=== PATIENT | male | born 1955 | race African-American/Black ===

== ENCOUNTER 2016-07-20 13:46 | Inpatient (IN) | payer OTHER ==
[2016-07-20 15:48] VITALS: BMI 19.8
[2016-07-20] MEDS ORDERED: MENTHOL/PHENOL 1 EACH UD MM PRN (17:57)
[2016-07-20] MEDS ORDERED: guaiFENesin/D-METHORPHAN HB 10 ML UNIT-DOSE CUPS PO PRN (17:57)
[2016-07-20] MEDS ORDERED: MAGNESIUM HYDROX 2400MG/30ML ORAL SUSPENSION 30 ML CUP PO PRN (17:57)
[2016-07-20] MEDS ORDERED: ACETAMINOPHEN 325 MG TABLET (FP) PO PRN (17:57)
[2016-07-20] MEDS ORDERED: LOPERAMIDE HCL 2 MG CAPSULE PO PRN (17:57)
[2016-07-20] MEDS ORDERED: IBUPROFEN 400 MG TABLET (FP) PO PRN (17:57)
[2016-07-20] MEDS ORDERED: MAG HYDROX/AL HYDROX/SIMETH 30 ML UNIT-DOSE CUP PO PRN (17:57)
[2016-07-20] MEDS ORDERED: chlordiazePOXIDE HCL 25 MG CAPSULE PO PRN (17:57)
[2016-07-20] MEDS ORDERED: MAGNESIUM CITRATE 300 ML BOTTLE PO PRN (17:57)
[2016-07-20] MEDS ORDERED: P-EPHED 60MG/TRIPROLIDI 2.5MG TABLET PO PRN (17:57)
[2016-07-20] MEDS ORDERED: ALBUTEROL SO4 6.7 GM HFA INHALER IH PRN (18:10)
--- NOTE | 2016-07-20 18:11 | HP ---
CIWA Score - CIWA Score Nausea/Vomitin-Mild Nausea/No Vomiting Muscle Tremors: 4-Moderate,w/Arms Extend Anxiety: 4-Mod. Anxious/Guarded Agitation: 4-Moderately Restless Paroxysmal Sweats: 1-Minimal Palms Moist Orientation: 1-Uncertain about Date Tacttile Disturbances: 0-None Auditory Disturbances: 0-None Visual Disturbances: 0-None Headache: 0-None Present CIWA-Ar Total Score: 15 Admission ROS S - HPI Chief Complaint: WITHDRAWAL SX Allergies/Adverse Reactions: Allergies Allergy/AdvReac Type Severity Reaction Status Date / Time No Known Allergies Allergy Verified 04/06/14 16:22 History of Present Illness: 61 YEARS OLD MALE WITH LONG HISTORY OF ALCOHOL DEPENDENCE HAS HIV COPD ASTHMA GERD HYPERTENSION WEIGHT LOSS DRY EYES RHINITIS AND DEPRESSION IS ADMITTED TO DETOX Exam Limitations: No Limitations - Ebola screening Have you traveled outside of the country in the last 21 days: No Have you had contact with anyone from an Ebola affected area: No Have you been sick,other than usual withdrawal symptoms: No Do you have a fever: No - Review of Systems Constitutional: Chills, Loss of Appetite, Changes in sleep, Unintentional Wgt. Loss, Unexplained wgt Loss EENT: reports: Dental Problems (DENTURE) Respiratory: reports: SOB with Exertion Cardiac: reports: No Symptoms Reported GI: reports: Nausea, Poor Appetite, Poor Fluid Intake, Indigestion, Abdominal cramping : reports: No Symptoms Reported Musculoskeletal: reports: Back Pain, Muscle Weakness (LEGS) Integumentary: reports: No Symptoms Reported Neuro: reports: Tremors Endocrine: reports: No Symptoms Reported Hematology: reports: No Symptoms Reported Psychiatric: reports: Judgement Intact, Depressed Other Systems: Reviewed and Negative Patient History - Patient Medical History Hx Anemia: No Hx Asthma: Yes Hx Chronic Obstructive Pulmonary Disease (COPD): Yes Hx Cancer: No Hx Cardiac Disorders: No Hx Congestive Heart Failure: No Hx Hypertension: Yes Hx Hypercholesterolemia: No Hx Pacemaker: No HX Cerebrovascular Accident: No Hx Seizures: No Hx Dementia: No Hx Diabetes: No Hx Gastrointestinal Disorders: Yes Hx Liver Disease: No Hx Genitourinary Disorders: Yes (BPH ? Enlarged NO TREATMENT) Hx Sexually Transmitted Disorders: Yes (Gonorrhea, syphilis) Hx Renal Disease (ESRD): No Hx Thyroid Disease: No Hx Human Immunodeficiency Virus (HIV): Yes (1987, aids ,[facility] ) Hx Hepatitis C: Yes (TREATED) Hx Depression: Yes Hx Suicide Attempt: Yes (2001- OD and cutting of vein) Hx Bipolar Disorder: No Hx Schizophrenia: No - Patient Surgical History Past Surgical History: Yes Hx Neurologic Surgery: No Hx Cataract Extraction: No Hx Cardiac Surgery: No Hx Lung Surgery: No Hx Breast Surgery: No Hx Breast Biopsy: No Hx Abdominal Surgery: Yes (rt inguinal hernia 1984) Hx Appendectomy: No Hx Cholecystectomy: No Hx Genitourinary Surgery: No Hx Orthopedic Surgery: No Anesthesia Reaction: No - PPD History Previous Implant?: Yes Documented Results: Positive w/o proof Implanted On Prior R Admission?: No PPD to be Administered?: No - Smoking Cessation Smoking history: Former smoker Have you smoked in the past 12 months: No Aproximately how many cigarettes per day: 0 Cigars Per Day: 0 Hx Chewing Tobacco Use: No Initiated information on smoking cessation: No - Substance & Tx. History Hx Alcohol Use: Yes Hx Substance Use: No Substance Use Type: Alcohol Hx Substance Use Treatment: Yes - Substances Abused Alcohol Route: Oral Frequency: Daily Amount used: FIFTH VOLKA Age of first use: 58 Date of Last Use: 07/20/16 Family Disease History - Family Disease History Family Disease History: Heart Disease: Mother (cva ), CA: Brother ( ), Other: Father (NO CONTACT) Admission Physical Exam BHS - Vital Signs Vital Signs: Vital Signs - 24 hr 07/20/16 15:44 Temperature 97.7 F Pulse Rate 97 H Respiratory 20 Rate Blood Pressure 165/105 - Physical General Appearance: Yes: Appropriately Dressed, Mild Distress, Thin, Tremorous, Irritable, Sweating, Anxious HEENTM: Yes: Hearing grossly Normal, Normal ENT Inspection, Normocephalic, Normal Voice Respiratory: Yes: Chest Non-Tender, No Respiratory Distress, No Accessory Muscle Use, Hyperresonant, Inspiration Neck: Yes: Supple, Trachea in good position Breast: Yes: Breasts Symetrical Cardiology: Yes: Regular Rhythm, S1, S2, Tachycardia Abdominal: Yes: Non Tender, Soft Genitourinary: Yes: Within Normal Limits Back: Yes: Normal Inspection Musculoskeletal: Yes: Gait Steady (CANE), Back pain, Muscle weakness (LEGS RELATED TO HIV) Extremities: Yes: Non-Tender, Tremors Neurological: Yes: Alert, Motor Strength 5/5, Normal Response, Depressed Affect Integumentary: Yes: Dry, Warm Lymphatic: Yes: Within Normal Limits - Diagnostic (1) COPD (chronic obstructive pulmonary disease) Current Visit: Yes Status: Acute Qualifiers: COPD type: emphysema Emphysema type: other Qualified Code(s): J43.8 - Other emphysema (2) HTN (hypertension) Current Visit: Yes Status: Acute Qualifiers: Hypertension type: essential hypertension Qualified Code(s): I10 - Essential (primary) hypertension (3) Alcohol dependence with uncomplicated withdrawal Current Visit: Yes Status: Acute (4) HIV (human immunodeficiency virus infection) Current Visit: Yes Status: Acute Comment: TRIUMP LAST DOSE 07/20/16 (5) GERD (gastroesophageal reflux disease) Current Visit: Yes Status: Acute Qualifiers: Esophagitis presence: without esophagitis Qualified Code(s): K21.9 - Gastro-esophageal reflux disease without esophagitis (6) Weight loss Current Visit: Yes Status: Acute (7) Positive PPD, treated Current Visit: Yes Status: Resolved (8) Dry eyes Current Visit: Yes Status: Acute (9) Rhinitis, allergic Current Visit: Yes Status: Acute Qualifiers: Allergic rhinitis trigger: unspecified Allergic rhinitis seasonality: unspecified seasonality Qualified Code(s): J30.9 - Allergic rhinitis, unspecified (10) Hepatitis C antibody test positive Current Visit: Yes Status: Resolved Comment: TREATED (11) Dry skin dermatitis Current Visit: Yes Status: Acute Cleared for Admission BHS - Detox or Rehab S Level of Care: Medically Managed Detox Regimen/Protocol: Librium S Breath Alcohol Content Breath Alcohol Content: 0 Urine Drug Screen - Results Drug Screen Negative: Yes
[2016-07-20] MEDS: METOPROLOL SUCCINATE 50 MG TAB.SR.24H (FP) PO SCH (19:39)
[2016-07-20] MEDS: LORATADINE 10 MG TABLET PO SCH (19:39)
--- NOTE | 2016-07-20 21:00 | PN ---
[facility] Progress Note Note: RECEIVED NURSE INFORMED PATIENT NEEDS PPD CHART REVIEWED +ppd CHEST X RAY CONTINUE DETOX
[2016-07-20] MEDS: ARTIFICIAL TEARS (POLYVINYL ALCOHOL 1.4%) OPTH DROPS OU SCH (22:12)
[2016-07-20] MEDS: THIAMINE HCL 100 MG TABLET (FP) PO SCH (22:13)
[2016-07-20] MEDS: MINERAL OIL/PETROLAT/WATER TOPICAL CREAM 113 GM JAR TP SCH (22:13)
[2016-07-20] MEDS: RANITIDINE HCL 150 MG TABLET (FP) PO SCH (22:13)
[2016-07-20] MEDS: chlordiazePOXIDE HCL 25 MG CAPSULE PO SCH (22:13)
[2016-07-20] MEDS: diphenhydrAMINE HCL 50 MG CAPSULE PO PRN (22:14)
[2016-07-20] MEDS: BUDESONIDE/FORMETEROL FUMARATE 80/4.5 mcg INHALER IH SCH (22:15)
[2016-07-21] MEDS: chlordiazePOXIDE HCL 25 MG CAPSULE PO SCH ×4 (05:49→22:15)
[2016-07-21] MEDS: ARTIFICIAL TEARS (POLYVINYL ALCOHOL 1.4%) OPTH DROPS OU SCH ×3 (05:53→22:50)
[2016-07-21] MEDS: LORATADINE 10 MG TABLET PO SCH (10:18)
[2016-07-21] MEDS: METOPROLOL SUCCINATE 50 MG TAB.SR.24H (FP) PO SCH (10:18)
[2016-07-21] MEDS: PRENATAL VITAMINS W/ FOLIC ACID TABLET (FP) PO SCH (10:18)
[2016-07-21] MEDS: RANITIDINE HCL 150 MG TABLET (FP) PO SCH ×2 (10:18→22:15)
[2016-07-21] MEDS: BUDESONIDE/FORMETEROL FUMARATE 80/4.5 mcg INHALER IH SCH ×2 (10:19→22:50)
[2016-07-21 10:41] LABS: MCH 34.6 pg (25.7-33.7); MEAN CELL VOLUME 101.6 fl (80-96); MEAN PLT VOLUME 9.5 fl (7.5-11.1); PLATELET COUNT 132 K/MM3 (134-434); RDW 14.6 % (11.9-15.9); WHITE BLOOD COUNT 3.6 K/mm3 (4.0-10.0)
[2016-07-21 11:01] LABS: BILIRUBIN,TOTAL 0.6 mg/dL (0.2-1.0); CALCIUM 8.3 mg/dL (8.5-10.1); CREATININE 1.3 mg/dL (0.7-1.3); TOT PROT 6.6 g/dl (6.4-8.2)
--- NOTE | 2016-07-21 11:57 | CONSULT ---
[facility] Psychiatric Consult - Data Date of interview: 07/21/16 Admission source: [facility] Identifying data: Readmission to [facility] for this 61 y/o AA male seeking detox treatment for alcohol dependence.Patient is single without children, domiciled,disabled and supported on SSI benefits. Substance Abuse History: - Smoking Cessation. Smoking history: Former smoker. Have you smoked in the past 12 months: No. Aproximately how many cigarettes per day: 0. Cigars Per Day: 0. Hx Chewing Tobacco Use: No. Initiated information on smoking cessation: No. - Substance & Tx. History. Hx Alcohol Use: Yes. Hx Substance Use: No. Substance Use Type: Alcohol. Hx Substance Use Treatment: Yes. - Substances Abused. Alcohol. Route: Oral. Frequency : Daily. Amount used: FIFTH VOLKA. Age of first use: 58. Date of Last Use: . Confirmed by patient. Medical History: Bronchial asthma,hepatitis C,HIV/AIDS since 1986,benign prostatic hyperplasia,neuropathy (self-report),hypertension and a history of tretament for gonorrhea + syphilis.Noted history of right inguinal herniorraphy (1984).Mr Fernández reports a history of neurosurgery in 1996 (cervical fusion) at an institution in [place].Ambulates with a cane. Psychiatric History: Patient denies history of psychiatric illness in spite of an antecedent of suicide attempt (2001) via self-mutilation. Physical/Sexual Abuse/Trauma History: Patient denies. Additional Comment: Drug Screen Negative: Yes.Noted. Mental Status Exam - Mental Status Exam Alert and Oriented to: Time, Place, Person Cognitive Function: Good Patient Appearance: Well Groomed Mood: Withdrawn, Hopeful Affect: Mood Congruent Patient Behavior: Fatigued, Appropriate, Cooperative Speech Pattern: Clear Voice Loudness: Normal Thought Process: Goal Oriented Thought Disorder: Not Present Hallucinations: Denies Suicidal Ideation: Denies Homicidal Ideation: Denies Insight/Judgement: Fair Sleep: Fair Appetite: Fair Gait/Station: Other (ambulates with cane) Psychiatric Findings - Problem List (Dennis 1, 2,3) (1) Alcohol dependence with uncomplicated withdrawal Current Visit: Yes Status: Acute (2) GERD (gastroesophageal reflux disease) Current Visit: Yes Status: Chronic Qualifiers: Esophagitis presence: without esophagitis Qualified Code(s): K21.9 - Gastro-esophageal reflux disease without esophagitis (3) HIV (human immunodeficiency virus infection) Current Visit: Yes Status: Chronic Comment: TRIUMP LAST DOSE 07/20/16 (4) HTN (hypertension) Current Visit: Yes Status: Chronic Qualifiers: Hypertension type: essential hypertension Qualified Code(s): I10 - Essential (primary) hypertension (5) Weight loss Current Visit: Yes Status: Chronic (6) Hepatitis C antibody test positive Current Visit: Yes Status: Resolved Comment: TREATED (7) Positive PPD, treated Current Visit: Yes Status: Resolved (8) AIDS Current Visit: Yes Status: Chronic (9) Peripheral neuropathy Current Visit: Yes Status: Chronic - Initial Treatment Plan Initial Treatment Plan: Psychoeducation.Detoxification in progress.Observation.Falls precautions.
--- NOTE | 2016-07-21 12:47 | PN ---
S CIWA - CIWA Score Nausea/Vomitin-No Nausea/No Vomiting Muscle Tremors: 4-Moderate,w/Arms Extend Anxiety: 3 Agitation: 3 Paroxysmal Sweats: 3 Orientation: 0-Oriented Tacttile Disturbances: 0-None Auditory Disturbances: 0-None Visual Disturbances: 0-None Headache: 0-None Present CIWA-Ar Total Score: 13 BHS Progress Note (SOAP) Subjective: Anxiety,tremors,sweating,interrupted sleep,restless Objective: 07/21/16 12:45 Vital Signs - 8 hr 07/21/16 07/21/16 06:18 09:25 Temperature 95.9 F L 96.7 F L Pulse Rate 80 82 Respiratory 18 18 Rate Blood Pressure 146/86 157/103 Laboratory Tests 07/21/16 07/21/16 08:00 08:00 WBC 3.6 L RBC 3.71 L Hgb 12.8 Hct 37.6 MCV 101.6 H MCHC 34.0 RDW 14.6 D Plt Count 132 L D MPV 9.5 Sodium 143 Potassium 4.1 Chloride 108 H Carbon Dioxide 25 Anion Gap 10 BUN 25 H D Creatinine 1.3 Creat Clearance w eGFR 56.12 Random Glucose 95 Calcium 8.3 L Total Bilirubin 0.6 D AST 29 ALT 22 D Alkaline Phosphatase 51 D Total Protein 6.6 Albumin 3.0 L labs noted Assessment: 07/21/16 12:46 Withdrawal sx. Plan: Continue detox
--- NOTE | 2016-07-21 18:20 | EKG ---
Test Reason : Blood Pressure : / mmHG Vent. Rate : 086 BPM Atrial Rate : 086 BPM P-R Int : 140 ms QRS Dur : 080 ms QT Int : 372 ms P-R-T Axes : 075 -11 007 degrees QTc Int : 445 ms NORMAL SINUS RHYTHM NONSPECIFIC T WAVE ABNORMALITY ABNORMAL ECG WHEN COMPARED WITH ECG OF 20-JUL-2016 18:47, CRITERIA FOR SEPTAL INFARCT ARE NO LONGER PRESENT NONSPECIFIC T WAVE ABNORMALITY NOW EVIDENT IN INFERIOR LEADS NONSPECIFIC T WAVE ABNORMALITY, WORSE IN LATERAL LEADS Confirmed by JORDEN UPTON MD ([id number]) on 07/21/2016 6:20:41 PM Referred By: Kevin Bernardo Confirmed By:JORDEN UPTON MD
--- NOTE | 2016-07-21 18:29 | EKG ---
Test Reason : Blood Pressure : / mmHG Vent. Rate : 090 BPM Atrial Rate : 090 BPM P-R Int : 146 ms QRS Dur : 088 ms QT Int : 370 ms P-R-T Axes : 073 -09 045 degrees QTc Int : 452 ms NORMAL SINUS RHYTHM SEPTAL INFARCT , AGE UNDETERMINED ABNORMAL ECG NO PREVIOUS ECGS AVAILABLE Confirmed by JORDEN UPTON MD ([id number]) on 07/21/2016 6:29:00 PM Referred By: Kevin Bernardo Confirmed By:JORDEN UPTON MD
[2016-07-21] MEDS: diphenhydrAMINE HCL 50 MG CAPSULE PO PRN (22:15)
[2016-07-21] MEDS: THIAMINE HCL 100 MG TABLET (FP) PO SCH (22:15)
[2016-07-21] MEDS: MINERAL OIL/PETROLAT/WATER TOPICAL CREAM 113 GM JAR TP SCH (22:50)
[2016-07-22] MEDS: chlordiazePOXIDE HCL 25 MG CAPSULE PO SCH ×3 (05:38→17:12)
[2016-07-22] MEDS: ARTIFICIAL TEARS (POLYVINYL ALCOHOL 1.4%) OPTH DROPS OU SCH ×3 (05:49→22:15)
[2016-07-22] MEDS: METOPROLOL SUCCINATE 50 MG TAB.SR.24H (FP) PO SCH (10:12)
[2016-07-22] MEDS: RANITIDINE HCL 150 MG TABLET (FP) PO SCH ×2 (10:12→22:16)
[2016-07-22] MEDS: BUDESONIDE/FORMETEROL FUMARATE 80/4.5 mcg INHALER IH SCH ×2 (10:13→22:16)
[2016-07-22] MEDS: PRENATAL VITAMINS W/ FOLIC ACID TABLET (FP) PO SCH (10:14)
[2016-07-22] MEDS: LORATADINE 10 MG TABLET PO SCH (10:14)
--- NOTE | 2016-07-22 10:51 | PN ---
S CIWA - CIWA Score Nausea/Vomitin-No Nausea/No Vomiting Muscle Tremors: 4-Moderate,w/Arms Extend Anxiety: 3 Agitation: 3 Paroxysmal Sweats: 3 Orientation: 0-Oriented Tacttile Disturbances: 1-Very Mild Itch/Numbness Auditory Disturbances: 0-None Visual Disturbances: 0-None Headache: 0-None Present CIWA-Ar Total Score: 14 BHS Progress Note (SOAP) Subjective: Anxiety,tremors,sweating,interrupted sleep,restless Objective: 07/22/16 10:49 Vital Signs - 8 hr 07/22/16 07/22/16 07/22/16 03:31 06:22 09:34 Temperature 95.2 F L 97.8 F Pulse Rate 77 79 Respiratory 18 18 18 Rate Blood Pressure 148/97 160/104 BP elevated,we'll monitor Laboratory Tests 07/21/16 07/21/16 07/21/16 08:00 08:00 08:00 WBC 3.6 L RBC 3.71 L Hgb 12.8 Hct 37.6 MCV 101.6 H MCHC 34.0 RDW 14.6 D Plt Count 132 L D MPV 9.5 Sodium 143 Potassium 4.1 Chloride 108 H Carbon Dioxide 25 Anion Gap 10 BUN 25 H D Creatinine 1.3 Creat Clearance w eGFR 56.12 Random Glucose 95 Calcium 8.3 L Total Bilirubin 0.6 D AST 29 ALT 22 D Alkaline Phosphatase 51 D Total Protein 6.6 Albumin 3.0 L RPR Titer Nonreactive Labs noted Assessment: 07/22/16 10:49 Withdrawal sx. Plan: Continue Detox norvasc 10mg QD
[2016-07-22 10:53] LABS: URINE APPEARANCE SLCLOUDY; URINE BILIRUBIN NEGATIVE (NEGATIVE); URINE BLOOD NEGATIVE (NEGATIVE); URINE COLOR YELLOW; URINE GLUCOSE (UA) NEGATIVE (NEGATIVE); URINE KETONE NEGATIVE (NEGATIVE); URINE NITRITE POSITIVE (NEGATIVE); URINE PROTEIN NEGATIVE (NEGATIVE); URINE UROBILINOGEN NEGATIVE E.U./dl (0.2-1.0)
[2016-07-22 11:05] LABS: URINE LEUK ESTERASE 1+ (NEGATIVE)
[2016-07-22 11:06] LABS: URINE BACTERIA RARE /hpf (NONE SEEN); URINE RBC 1 /hpf (0-3); URINE WBC 31 /hpf (3-5)
[2016-07-22] MEDS: amLODIPine BESYLATE 10 MG TABLET (FP) PO SCH (12:59)
[2016-07-22] MEDS: THIAMINE HCL 100 MG TABLET (FP) PO SCH (22:16)
[2016-07-22] MEDS: MINERAL OIL/PETROLAT/WATER TOPICAL CREAM 113 GM JAR TP SCH (22:16)
[2016-07-22] MEDS: chlordiazePOXIDE 5 MG CAPSULE PO SCH (22:16)
[2016-07-22] MEDS: diphenhydrAMINE HCL 50 MG CAPSULE PO PRN (22:17)
[2016-07-23] MEDS: chlordiazePOXIDE 5 MG CAPSULE PO SCH ×2 (05:01→10:09)
[2016-07-23] MEDS: ARTIFICIAL TEARS (POLYVINYL ALCOHOL 1.4%) OPTH DROPS OU SCH (05:03)
[2016-07-23] MEDS: RANITIDINE HCL 150 MG TABLET (FP) PO SCH (10:06)
[2016-07-23] MEDS: LORATADINE 10 MG TABLET PO SCH (10:06)
[2016-07-23] MEDS: METOPROLOL SUCCINATE 50 MG TAB.SR.24H (FP) PO SCH (10:06)
[2016-07-23] MEDS: amLODIPine BESYLATE 10 MG TABLET (FP) PO SCH (10:07)
[2016-07-23] MEDS: BUDESONIDE/FORMETEROL FUMARATE 80/4.5 mcg INHALER IH SCH (10:08)
[2016-07-23] MEDS: PRENATAL VITAMINS W/ FOLIC ACID TABLET (FP) PO SCH (10:09)
--- NOTE | 2016-07-23 13:16 | PN ---
BHS Progress Note (SOAP) Subjective: Sweating,interrupted sleep,restless Objective: 07/23/16 13:15 Vital Signs - 8 hr 07/23/16 07/23/16 06:10 10:21 Temperature 96 F L 97.2 F L Pulse Rate 76 78 Respiratory 16 18 Rate Blood Pressure 151/88 169/98 Laboratory Last Values WBC 3.6 K/mm3 (4.0-10.0) L 07/21/16 08:00 RBC 3.71 M/mm3 (4.00-5.60) L 07/21/16 08:00 Hgb 12.8 GM/dL (11.7-16.9) 07/21/16 08:00 Hct 37.6 % (35.4-49) 07/21/16 08:00 MCV 101.6 fl (80-96) H 07/21/16 08:00 MCHC 34.0 g/dl (32.0-35.9) 07/21/16 08:00 RDW 14.6 % (11.9-15.9) D 07/21/16 08:00 Plt Count 132 K/MM3 (134-434) L D 07/21/16 08:00 MPV 9.5 fl (7.5-11.1) 07/21/16 08:00 Sodium 143 mmol/L (136-145) 07/21/16 08:00 Potassium 4.1 mmol/L (3.5-5.1) 07/21/16 08:00 Chloride 108 mmol/L (98-107) H 07/21/16 08:00 Carbon Dioxide 25 mmol/L (21-32) 07/21/16 08:00 Anion Gap 10 (8-16) 07/21/16 08:00 BUN 25 mg/dL (7-18) H D 07/21/16 08:00 Creatinine 1.3 mg/dL (0.7-1.3) 07/21/16 08:00 Creat Clearance w eGFR 56.12 (>60) 07/21/16 08:00 Random Glucose 95 mg/dL (74-106) 07/21/16 08:00 Calcium 8.3 mg/dL (8.5-10.1) L 07/21/16 08:00 Total Bilirubin 0.6 mg/dL (0.2-1.0) D 07/21/16 08:00 AST 29 U/L (15-37) 07/21/16 08:00 ALT 22 U/L (12-78) D 07/21/16 08:00 Alkaline Phosphatase 51 U/L (45-117) D 07/21/16 08:00 Total Protein 6.6 g/dl (6.4-8.2) 07/21/16 08:00 Albumin 3.0 g/dl (3.4-5.0) L 07/21/16 08:00 Urine Color Yellow 07/22/16 07:30 Urine Appearance Slcloudy 07/22/16 07:30 Urine pH 5.0 (5.0-8.0) 07/22/16 07:30 Ur Specific [place] 1.018 (1.001-1.035) 07/22/16 07:30 Urine Protein Negative (NEGATIVE) 07/22/16 07:30 Urine Glucose (UA) Negative (NEGATIVE) 07/22/16 07:30 Urine Ketones Negative (NEGATIVE) 07/22/16 07:30 Urine Blood Negative (NEGATIVE) 07/22/16 07:30 Urine Nitrite Positive (NEGATIVE) 07/22/16 07:30 Urine Bilirubin Negative (NEGATIVE) 07/22/16 07:30 Urine Urobilinogen Negative E.U./dl (0.2-1.0) 07/22/16 07:30 Ur Leukocyte Esterase 1+ (NEGATIVE) H 07/22/16 07:30 Urine RBC 1 /hpf (0-3) 07/22/16 07:30 Urine WBC 31 /hpf (3-5) 07/22/16 07:30 Ur Epithelial Cells Rare /hpf (FEW) 07/22/16 07:30 Urine Bacteria Rare /hpf (NONE SEEN) 07/22/16 07:30 RPR Titer Nonreactive (NONREACTIVE) 07/21/16 08:00 U/A noted with + nitrite Assessment: 07/23/16 13:15 R/O UTI Withdrawal sx. Plan: Continue detox Bactrim DS
[2016-07-23 13:44] VITALS: BP 148/96; PULSE 75; TEMP 95.7
[2016-07-23] MEDS ORDERED: SULFAMETHOXAZOLE/TRIMETHOPRIM 800MG/160MG D.S. TABLET PO SCH (14:04)
[2016-07-23] MEDS ORDERED: chlordiazePOXIDE HCL 10 MG CAPSULE PO SCH (23:00)
--- NOTE | 2016-08-28 15:18 | DS ---
[facility] Detox Discharge Summary Admission Date: 07/20/16 Discharge Date: 07/23/16 - History Present History: Alcohol Dependence, Cocaine Dependence Pertinent Past History: COPD AIDS Hep C GERD - Physical Exam Results Vital Signs: Vital Signs Temperature 95.7 F L 07/23/16 13:43 Pulse Rate 75 07/23/16 13:43 Respiratory Rate 18 07/23/16 13:43 Blood Pressure 148/96 07/23/16 13:43 O2 Sat by Pulse Oximetry (%) Pertinent Admission Physical Exam Findings: Withdrawal sx. Laboratory Last Values WBC 3.6 K/mm3 (4.0-10.0) L 07/21/16 08:00 RBC 3.71 M/mm3 (4.00-5.60) L 07/21/16 08:00 Hgb 12.8 GM/dL (11.7-16.9) 07/21/16 08:00 Hct 37.6 % (35.4-49) 07/21/16 08:00 MCV 101.6 fl (80-96) H 07/21/16 08:00 MCHC 34.0 g/dl (32.0-35.9) 07/21/16 08:00 RDW 14.6 % (11.9-15.9) D 07/21/16 08:00 Plt Count 132 K/MM3 (134-434) L D 07/21/16 08:00 MPV 9.5 fl (7.5-11.1) 07/21/16 08:00 Sodium 143 mmol/L (136-145) 07/21/16 08:00 Potassium 4.1 mmol/L (3.5-5.1) 07/21/16 08:00 Chloride 108 mmol/L (98-107) H 07/21/16 08:00 Carbon Dioxide 25 mmol/L (21-32) 07/21/16 08:00 Anion Gap 10 (8-16) 07/21/16 08:00 BUN 25 mg/dL (7-18) H D 07/21/16 08:00 Creatinine 1.3 mg/dL (0.7-1.3) 07/21/16 08:00 Creat Clearance w eGFR 56.12 (>60) 07/21/16 08:00 Random Glucose 95 mg/dL (74-106) 07/21/16 08:00 Calcium 8.3 mg/dL (8.5-10.1) L 07/21/16 08:00 Total Bilirubin 0.6 mg/dL (0.2-1.0) D 07/21/16 08:00 AST 29 U/L (15-37) 07/21/16 08:00 ALT 22 U/L (12-78) D 07/21/16 08:00 Alkaline Phosphatase 51 U/L (45-117) D 07/21/16 08:00 Total Protein 6.6 g/dl (6.4-8.2) 07/21/16 08:00 Albumin 3.0 g/dl (3.4-5.0) L 07/21/16 08:00 Urine Color Yellow 07/22/16 07:30 Urine Appearance Slcloudy 07/22/16 07:30 Urine pH 5.0 (5.0-8.0) 07/22/16 07:30 Ur Specific [place] 1.018 (1.001-1.035) 07/22/16 07:30 Urine Protein Negative (NEGATIVE) 07/22/16 07:30 Urine Glucose (UA) Negative (NEGATIVE) 07/22/16 07:30 Urine Ketones Negative (NEGATIVE) 07/22/16 07:30 Urine Blood Negative (NEGATIVE) 07/22/16 07:30 Urine Nitrite Positive (NEGATIVE) 07/22/16 07:30 Urine Bilirubin Negative (NEGATIVE) 07/22/16 07:30 Urine Urobilinogen Negative E.U./dl (0.2-1.0) 07/22/16 07:30 Ur Leukocyte Esterase 1+ (NEGATIVE) H 07/22/16 07:30 Urine RBC 1 /hpf (0-3) 07/22/16 07:30 Urine WBC 31 /hpf (3-5) 07/22/16 07:30 Ur Epithelial Cells Rare /hpf (FEW) 07/22/16 07:30 Urine Bacteria Rare /hpf (NONE SEEN) 07/22/16 07:30 RPR Titer Nonreactive (NONREACTIVE) 07/21/16 08:00 labs noted - Medication Discharge Medications: Ambulatory Orders Abacavir Sulfate/Lamivudine [Epzicom -] 1 tab PO DAILY 04/06/14 Albuterol Sulfate Inhaler - [Ventolin HFA Inhaler -] 2 inh PO Q4H PRN 12/09/14 Atazanavir [Reyataz -] 300 mg PO DAILY 04/06/14 Ritonavir [Norvir -] 100 mg PO DAILY 04/06/14 Albuterol Sulfate Inhaler - [Ventolin HFA Inhaler -] 0 inh IH Q4HPO PRN #1 inh 05/03/14 Ranitidine [Zantac -] 150 mg PO BID #60 tablet 05/03/14 Abacavir/Dolutegravir/Lamivudi [Triumeq Tablet] 1 each PO DAILY 07/20/16 - Diagnosis (1) Alcohol dependence with uncomplicated withdrawal Status: Acute (2) COPD (chronic obstructive pulmonary disease) Status: Acute Qualifiers: COPD type: emphysema Emphysema type: other Qualified Code(s): J43.8 - Other emphysema (3) AIDS Status: Acute (4) Cocaine dependence Status: Acute Qualifiers: Substance use status: uncomplicated Qualified Code(s): F14.20 - Cocaine dependence, uncomplicated (5) GERD (gastroesophageal reflux disease) Status: Chronic Qualifiers: Esophagitis presence: without esophagitis Qualified Code(s): K21.9 - Gastro-esophageal reflux disease without esophagitis (6) HTN (hypertension) Status: Chronic Qualifiers: Hypertension type: essential hypertension Qualified Code(s): I10 - Essential (primary) hypertension - AMA Did Patient Leave Against Medical Advice: Yes
== END 2016-07-23 14:48 | disposition left against medical advice (07) | DRG 770 ==
LOC: YASAS 13:46 → Y3N 18:49
PROVIDERS: ADMIT Internal Medicine; ATTEND Internal Medicine
PROC: HZ2ZZZZ Detoxification Services for Substance Abuse Treatment (ICD-10-PCS; principal; 2016-07-20)
DX: F10.230 Alcohol dependence with withdrawal, uncomplicated (principal); K21.9 Gastro-esophageal reflux disease without esophagitis; G62.9 Polyneuropathy, unspecified; I10 Essential (primary) hypertension; B18.2 Chronic viral hepatitis C; B20 Human immunodeficiency virus [HIV] disease; N39.0 Urinary tract infection, site not specified; J45.909 Unspecified asthma, uncomplicated; J43.8 Other emphysema; R76.11 Nonspecific reaction to tuberculin skin test without active tuberculosis; N40.0 Benign prostatic hyperplasia without lower urinary tract symptoms; R00.0 Tachycardia, unspecified; H04.129 Dry eye syndrome of unspecified lacrimal gland; Z87.898 Personal history of other specified conditions; Z87.438 Personal history of other diseases of male genital organs; Z87.891 Personal history of nicotine dependence
CPT/HCPCS: 36415; 71020-TC; 80053; 81003; 81015; 85027; 86593; 93005; 93010